=== PATIENT | male | born 1975 | race Hispanic/Latino ===

== ENCOUNTER 2025-01-29 15:14 | Emergency (ER) | payer OTHER, SELFPAY ==
[2025-01-29] MEDS ORDERED: METHYLPREDNISOLONE 125 MG INJ ONE (16:39)
[2025-01-29] MEDS ORDERED: KETOROLAC 30 MG/ML INJ ONE (16:40)
[2025-01-29] MEDS ORDERED: HYDROMORPHONE HCL 1 MG/ML INJ ONE (16:40)
[2025-01-29] MEDS ORDERED: ONDANSETRON 4 MG/2 ML VIAL ONE (16:40)
[2025-01-29 16:44] LABS: Absolute Lymphocytes (CBC) 3.5 K/uL (0.7-4.9); Hematocrit 40.4 % (39.6-49.0); Hemoglobin 14.3 g/dL (13.6-17.9); MCH 30.4 pg (27.0-35.0); MCHC 35.5 g/dL (32.0-36.0); MCV 85.6 fL (80-100); MPV 10.2 fL (7.6-11.3); Nucleated RBC Absolute Count 0.0 (0-0); Nucleated Red Blood Cells % 0.1 % (0-0); RBC Red Blood Cell Count 4.72 M/uL (4.33-5.43); White Blood Count 10.50 thou/uL (4.3-10.9)
[2025-01-29 17:03] LABS: ALT/SGPT 27.0 U/L (16-61); Albumin 3.6 g/dL (3.4-5.0); Albumin/Globulin Ratio 0.8 (1.1-1.8); Alkaline Phosphatase 126.0 U/L (45-117); Anion Gap 12.9 mEq/L (5.0-15.0); BUN Blood Urea Nitrogen 16.0 mg/dL (7-18); Globulin 4.3 g/dL (2.3-3.5); Glucose Level 336.0 mg/dL (74-106)
[2025-01-29 17:04] LABS: AST/SGOT 13.0 U/L (15-37); Potassium 3.9 mEq/L (3.5-5.1)
--- NOTE | 2025-01-29 17:18 | RAD REPORT ---
EXAMINATION: Spine Lumbar Wo Con CLINICAL INDICATION: Male, 49 years old. Post op pain TECHNIQUE: Axial CT images were obtained through the lumbar spine in soft tissue and bone windows wit hout intravenous contrast. Coronal and Sagittal reformatted images were created from the data set. One or more of the following dose reduction techniques were used: Automated exposure control, adjustm ent of the mA and/ or kV according to patient size, and/or iterative reconstruction. Unless otherwise specified, incidental findings do not require dedicated imaging follow-up. [id number]. COMPARISON: MRI 11/21/2024 FINDINGS: For purposes of this dictation, it is assumed that there are 5 non rib-bearing lumbar type vertebrae, and the most caudal fully segmented lumbar vertebra is labeled L5. ALIGNMENT: Grade 1 anterolisthesis of L4 and L5. Trace retrolisthesis of L2 on L3. Minimal levoconvex curvature. BONES: No acute fracture. Surgical changes from posterior laminectomy at L4-5 and right hemilaminecto my at L2-3. At the L2-3 level, there is gas at the right subarticular zone that may represent recent surgical changes from presumed discectomy. There is likely at least mild to moderate central s gary stenosis at this level. Again noted are broad-based disc bulges at L3-4 and at L4-5. The L4-5 postoperative site is not well assessed due to inherent limitations of CT. No paraspinal fluid collec tions identified DEGENERATIVE: Vacuum disc and disc height loss present at T12-L1, L1-2, L2-3, L3-4, L4-5. SOFT TISSUE: No soft tissue abnormalities. IMPRESSION: Postoperative changes at L2-3 and L4-5. Within the limitations of CT, no unexpected fluid collections are identified. Multilevel broad-based disc bulges are again noted. No definite high-grade central spinal stenosis but assessment is limited. Further evaluation with MRI should be considered given the limitations of CT for evaluating spinal stenosis, epidural collections, recurrent or residual disc fragments, etc.
--- NOTE | 2025-01-29 17:29 | ER ---
Nurse's Notes [facility] Name: Don Oviedo Jr Age: 49 yrs Sex: Male : 1975 Arrival Date: 01/29/2025 Time: 15:14 Bed 10 Private MD: Diagnosis: Lumbar radiculopathy, right hip pain, sciatica, postoperative pain Presentation: 01/29 15:25 Chief complaint: Had back surgery 12/27, has not yet started PT, reports right hip pain hb and right leg weakness upon waking yesterday morning. Instructed by surgeon to come to ED. Coronavirus screen: At this time, the client does not indicate any symptoms associated with coronavirus-19. Ebola Screen: No symptoms or risks identified at this time. Initial Sepsis Screen: Does the patient meet any 2 criteria? No. Patient's initial sepsis screen is negative. Does the patient have a suspected source of infection? No. Patient's initial sepsis screen is negative. Risk Assessment: Do you want to hurt yourself or someone else? Patient reports no desire to harm self or others. Onset of symptoms was January 28, 2025. 15:25 Method Of Arrival: Ambulatory hb 15:25 Acuity: MARIA E 3 hb Historical: - Allergies: 15:29 PENICILLINS; hb - PMHx: 15:29 diabetes mellitus; hb - Immunization history:: Adult Immunizations unknown. - Infectious Disease History:: Denies. - Social history:: Smoking status: unknown. Screenin:15 Abuse screen: Denies threats or abuse. Nutritional screening: No deficits noted. ap3 Tuberculosis screening: No symptoms or risk factors identified. 17:47 [facility] ED Fall Risk Assessment (Adult) History of falling in the last 3 months, ap3 including since admission No falls in past 3 months (0 pts) Confusion or Disorientation No (0 pts) Intoxicated or Sedated No (0 pts) Impaired Gait No (0 pts) Mobility Assist Device Used Yes (1 pt) Altered Elimination No (0 pt) Score/Fall Risk Level 0 - 2 = Low Risk Oriented to surroundings, Maintained a safe environment, Educated pt \T\ family on fall prevention, incl call for assistance when getting out of bed, Assessed \T\ reinforced patient's understanding of fall precautions, Hourly rounding (assess needs \T\ fall precautionary measures) done, Used ambulatory aids as needed (educated on \T\ assisted with). Assessment: 17:15 General: Appears in no apparent distress. Behavior is calm, cooperative, appropriate ap3 for age. Pain: Complains of pain in back. Neuro: Level of Consciousness is awake, alert, obeys commands, Oriented to person, place, time, situation, Appropriate for age Reports numbness in right leg. Cardiovascular: Patient's skin is warm and dry. Respiratory: Airway is patent Respiratory effort is even, unlabored, Respiratory pattern is regular, symmetrical. Vital Signs: 15:25 BP 148 / 82; Pulse 88; Resp 18; Temp 98.3; Pulse Ox 100% on R/A; Weight 106.59 kg; hb Height 5 ft. 7 in. ; Pain 9/10; 17:49 BP 138 / 87; Pulse 74; Resp 18; Pulse Ox 100% on R/A; ap3 15:25 Body Mass Index 36.81 (106.59 kg, 170.18 cm) hb 15:25 Pain Scale: Adult hb ED Course: 15:20 Patient arrived in ED. al6 15:23 Lula Art MD is Attending Physician. sp3 15:29 Triage completed. hb 16:30 Alka Aviles, HOWARD is Primary Nurse. ap3 16:37 Initial lab(s) drawn, by me, sent to lab. Inserted saline lock: 22 gauge in right ap3 forearm, using aseptic technique. Blood collected. Flushed with 10 mL NS. 16:47 CT Lumbar Spine Wo Con In Process Unspecified. EDMS 17:16 Arm band placed on right wrist. ap3 17:48 No provider procedures requiring assistance completed. IV discontinued, intact, ap3 bleeding controlled, No redness/swelling at site. Pressure dressing applied. 17:48 Patient has correct armband on for positive identification. Provided Education on: ap3 discharge instructions. Administered Medications: 17:12 Drug: HYDROmorphone IVP 1 mg IVP once Route: IVP; Site: right antecubital; ap3 17:47 Follow up: Response: No adverse reaction; Pain is decreased; RASS: Alert and Calm (0) ap3 17:12 Drug: MethylPrednisoLONE IVP 125 mg IVP once Route: IVP; Site: right antecubital; ap3 17:47 Follow up: Response: No adverse reaction ap3 17:12 Drug: Ketorolac IVP 30 mg IVP once Route: IVP; Site: right antecubital; ap3 17:47 Follow up: Response: No adverse reaction; Pain is decreased; RASS: Alert and Calm (0) ap3 17:12 Drug: Ondansetron IVP 4 mg IVP once; over 2 minutes Route: IVP; Site: right antecubital;ap3 17:47 Follow up: Response: No adverse reaction ap3 Medication: 17:48 VIS not applicable for this client. ap3 Outcome: 17:28 Discharge ordered by . sp3 17:48 Discharged to home via wheelchair, ap3 17:48 Condition: good 17:48 Discharge instructions given to patient, Instructed on discharge instructions, follow up and referral plans. Demonstrated understanding of instructions, follow-up care, medications, Prescriptions given X 1, 17:49 Patient left the ED. ap3 Signatures: Dispatcher [employer] EDMS Vivian Drake RN RN Alka Aviles RN RN ap3 Lula Art MD MD sp3 Trinity Keen al6
--- NOTE | 2025-01-29 17:29 | EDPHYS ---
Physician Documentation [facility] Name: Don Oviedo Jr Age: 49 yrs Sex: Male : 1975 Arrival Date: 01/29/2025 Time: 15:14 Bed 10 Private MD: ED Physician Lula Art HPI: 01/29 16:27 This 49 yrs old Male presents to ER via Ambulatory with complaints of Low Back sp3 Pain. 16:27 49-year-old male with history of diabetes and recent lumbar surgery approximately 1 sp3 [address] Arvizu in [place] at [facility] and presents to the ED for continued lumbar and right buttock and anterior leg pain. He is set for EMG study next week. However due to the pain increasing, he contacted his doctor and told him to come in to the ED for CT scan evaluation and pain control. Patient denies loss of bowel or bladder control. He denies headache, neck pain, chest pain, shortness of breath, abdominal pain, vomiting, diarrhea, fever, bleeding, foot drop or any other signs or symptoms on ROS at this time.. Historical: - Allergies: 15:29 PENICILLINS; hb - PMHx: 15:29 diabetes mellitus; hb - Immunization history:: Adult Immunizations unknown. - Infectious Disease History:: Denies. - Social history:: Smoking status: unknown. ROS: 16:29 Constitutional: Negative for fever, chills, and weight loss, Eyes: Negative for injury, sp3 pain, redness, and discharge, ENT: Negative for injury, pain, and discharge, Neck: Negative for injury, pain, and swelling, Cardiovascular: Negative for chest pain, palpitations, and edema, Respiratory: Negative for shortness of breath, cough, wheezing, and pleuritic chest pain, Abdomen/GI: Negative for abdominal pain, nausea, vomiting, diarrhea, and constipation, MS/Extremity: Negative for injury and deformity, Skin: Negative for injury, rash, and discoloration, Neuro: Negative for headache, weakness, numbness, tingling, and seizure, Psych: Negative for depression, anxiety, suicide ideation, homicidal ideation, and hallucinations, Allergy/Immunology: Negative for hives, rash, and allergies, Endocrine: Negative for neck swelling, polydipsia, polyuria, polyphagia, and marked weight changes, 16:29 All other systems are negative, Exam: 16:30 Constitutional: This is a well developed, well nourished patient who is awake, alert, sp3 and in no acute distress. Head/Face: Normocephalic, atraumatic. Eyes: Pupils equal round and reactive to light, extra-ocular motions intact. Lids and lashes normal. Conjunctiva and sclera are non-icteric and not injected. Cornea within normal limits. Periorbital areas with no swelling, redness, or edema. ENT: Nares patent. No nasal discharge, no septal abnormalities noted. External auditory canals are clear. Oropharynx with no redness, swelling, or masses, exudates, or evidence of obstruction, uvula midline. Mucous membranes moist. Neck: Trachea midline, no thyromegaly or masses palpated, and no cervical lymphadenopathy. Supple, full range of motion without nuchal rigidity, or vertebral point tenderness. No Meningismus. Chest/axilla: Normal chest wall appearance and motion. Nontender with no deformity. No lesions are appreciated. Cardiovascular: Regular rate and rhythm with a normal S1 and S2. No gallops, murmurs, or rubs. Normal PMI, no JVD. No pulse deficits. Respiratory: Lungs have equal breath sounds bilaterally, clear to auscultation and percussion. No rales, rhonchi or wheezes noted. No increased work of breathing, no retractions or nasal flaring. Abdomen/GI: Soft, non-tender, with normal bowel sounds. No distension or tympany. No guarding or rebound. No evidence of tenderness throughout. Skin: Warm, dry with normal turgor. Normal color with no rashes, no lesions, and no evidence of cellulitis. MS/ Extremity: Pulses equal, no cyanosis. Neurovascular intact. Full, normal range of motion. Neuro: Awake and alert, GCS 15, oriented to person, place, time, and situation. Cranial nerves II-XII grossly intact. Motor strength 5/5 in all extremities. Sensory grossly intact. Cerebellar exam normal. Normal gait. Psych: Awake, alert, with orientation to person, place and time. Behavior, mood, and affect are within normal limits. 16:30 Back: Pain on straight leg raise on the right side at 30 degrees. Mild pain to palpation on the lower back. No obvious swelling, skin rash, irritation, fluid collection, abscess or other process noted., Vital Signs: 15:25 BP 148 / 82; Pulse 88; Resp 18; Temp 98.3; Pulse Ox 100% on R/A; Weight 106.59 kg; hb Height 5 ft. 7 in. ; Pain 9/10; 17:49 BP 138 / 87; Pulse 74; Resp 18; Pulse Ox 100% on R/A; ap3 15:25 Body Mass Index 36.81 (106.59 kg, 170.18 cm) hb 15:25 Pain Scale: Adult hb MDM: 15:39 Medical Screening Exam initiated sp3 16:30 Data reviewed: vital signs, nurses notes, lab test result(s), radiologic studies. ED sp3 course: 49-year-old male with low back pain postoperatively approximately 1 month ago. Differential diagnosis includes postop complication, sciatica, radiculopathy, localized swelling or hematoma, among others. Workup will include CT scan of the lumbosacral spine noncontrast to assess lumbar spine. IV pain control with Dilaudid, ketorolac, ondansetron and Solu-Medrol. General labs also pending. If workup negative, we will safely discharge patient home and continue outpatient follow-up in the medical ecosystem he is already in.. 17:27 ED course: CT scan demonstrates no significant findings postoperative changes or sp3 concerning findings. Labs are normal. Patient is somewhat improved. Will discharge on tramadol with continued outpatient workup by his care team.. 01/29 16:22 Order name: CBC with Diff; Complete Time: 17:05 sp3 01/29 16:22 Order name: CMP; Complete Time: 17:05 sp3 01/29 16:22 Order name: CT Lumbar Spine Wo Con; Complete Time: 17:25 sp3 01/29 16:22 Order name: IV Saline Lock; Complete Time: 16:37 sp3 01/29 16:22 Order name: Labs collected and sent; Complete Time: 16:37 sp3 Administered Medications: 17:12 Drug: HYDROmorphone IVP 1 mg IVP once Route: IVP; Site: right antecubital; ap3 17:47 Follow up: Response: No adverse reaction; Pain is decreased; RASS: Alert and Calm (0) ap3 17:12 Drug: MethylPrednisoLONE IVP 125 mg IVP once Route: IVP; Site: right antecubital; ap3 17:47 Follow up: Response: No adverse reaction ap3 17:12 Drug: Ketorolac IVP 30 mg IVP once Route: IVP; Site: right antecubital; ap3 17:47 Follow up: Response: No adverse reaction; Pain is decreased; RASS: Alert and Calm (0) ap3 17:12 Drug: Ondansetron IVP 4 mg IVP once; over 2 minutes Route: IVP; Site: right antecubital;ap3 17:47 Follow up: Response: No adverse reaction ap3 Disposition Summary: 01/29/25 17:28 Discharge Ordered Notes: Location: Home sp3 Condition: Stable sp3 Diagnosis - Lumbar radiculopathy, right hip pain, sciatica, postoperative pain sp3 Followup: sp3 - With: Private Physician - When: Upon discharge from the Emergency Department - Reason: Continuance of care Discharge Instructions: - Discharge Summary Sheet sp3 - Lumbosacral Radiculopathy sp3 Forms: - Medication Reconciliation Form sp3 - Antibiotic Education sp3 - Prescription Opioid Use sp3 - Patient Portal Instructions sp3 - Leadership Thank You Letter sp3 Prescriptions: - Tramadol 50 mg Oral Tablet - take 1 tablet ORAL route every 8 hours as needed; 12 tablet; Refills: 0, sp3 Product Selection Permitted Signatures: Dispatcher [employer] EDMS Vivian Drake, RN RN Alka Flores RN RN ap3 Lula Art MD MD sp3 Corrections: (The following items were deleted from the chart) 16:22 16:22 Spine Lumbar Wo Con+CT.RAD.BRZ ordered. EDMS EDMS 16:22 16:22 CBC+H.LAB.BRZ ordered. EDMS EDMS 16:22 16:22 COMPREHENSIVE METABOLIC PANEL+C.LAB.BRZ ordered. EDMS EDMS
[2025-01-29 17:59] VITALS: TEMP 98.3; O2SAT 100
[2025-01-29 18:00] VITALS: BP 138/87
== END 2025-01-29 17:49 | disposition home or self-care (01) ==
LOC: ER 15:14
DX: M54.16 Radiculopathy, lumbar region (principal); M54.30 Sciatica, unspecified side; G89.18 Other acute postprocedural pain
CPT/HCPCS: 85025; 36415; 80053; 72131; 96375; 96374; 99284; J1171; J2919; J2405